=== PATIENT | male | born 1955 | race Caucasian/White ===

== ENCOUNTER → 2017-02-27 | Outpatient (REF) | payer BC, OTHER ==
[2017-02-27 16:13] LABS: ANION GAP 7 MEQ/L (8-16); BLOOD UREA NITROGEN 19 MG/DL (7-18); CALCIUM LEVEL 9.1 MG/DL (8.8-10.2); CARBON DIOXIDE LEVEL 28 MEQ/L (21-32); CHLORIDE LEVEL 106 MEQ/L (98-107); CREATININE FOR GFR 1.14 MG/DL (0.70-1.30); GLOMERULAR FILTRATION RATE > 60.0 (>49); GLUCOSE, FASTING 105 MG/DL (80-110); POTASSIUM SERUM 4.4 MEQ/L (3.5-5.1); SODIUM LEVEL 141 MEQ/L (136-145)
== END ==
LOC: M LABDRWSH 15:26
PROVIDERS: ATTEND Physician Assistant
DX: M16.12 Unilateral primary osteoarthritis, left hip (principal)

== ENCOUNTER → 2017-04-28 | Outpatient (REF) | payer BC ==
[2017-04-28 16:08] LABS: ALBUMIN 3.7 GM/DL (3.2-5.2); ALBUMIN/GLOBULIN RATIO 1.28 (1.00-1.93); ALKALINE PHOSPHATASE 88 U/L (45-117); ALT/SGPT 46 U/L (12-78); ANION GAP 5 MEQ/L (8-16); AST/SGOT 27 U/L (15-37); BILIRUBIN,TOTAL 0.7 MG/DL (0.2-1.0); BLOOD UREA NITROGEN 14 MG/DL (7-18); CALCIUM LEVEL 8.8 MG/DL (8.8-10.2); CARBON DIOXIDE LEVEL 31 MEQ/L (21-32); CHLORIDE LEVEL 105 MEQ/L (98-107); CHOLESTEROL LEVEL 171 MG/DL (<200); CREATININE FOR GFR 1.13 MG/DL (0.70-1.30); GLOMERULAR FILTRATION RATE > 60.0 (>49); GLUCOSE, FASTING 103 MG/DL (80-110); POTASSIUM SERUM 4.1 MEQ/L (3.5-5.1); SODIUM LEVEL 141 MEQ/L (136-145); TOTAL PROTEIN 6.6 GM/DL (6.4-8.2); TRIGLYCERIDES LEVEL 63 MG/DL (<150)
[2017-04-28 18:30] LABS: BASO # 0.1 K/mm3 (0.0-0.2); EOS # 0.1 K/mm3 (0.0-0.50); EOS % 2.1 % (0.0-3.0); LARGE UNSTAINED CELL % 0.4 % (0.0-4.0); LYMPH # 1.7 K/mm3 (1.5-4.5); LYMPH % 28.1 % (24.0-44.0); MEAN CORPUSCULAR HEMOGLOBIN 28.4 pg (27.0-33.0); MEAN CORPUSCULAR HGB CONC 31.8 g/dl (32.0-36.5); MEAN CORPUSCULAR VOLUME 89.3 fl (80.0-96.0); MONO # 0.2 K/mm3 (0.0-0.8); MONO % 3.8 % (0.0-5.0); NEUTROPHILS # 3.8 K/mm3 (1.8-7.7); NEUTROPHILS % 64.6 % (36.0-66.0); PLATELET COUNT, AUTOMATED 156 k/mm3 (150-450); RED CELL DISTRIBUTION WIDTH 14.1 % (11.5-14.5); WHITE BLOOD COUNT 5.9 K/mm3 (4.0-10.0)
== END ==
LOC: M SFHCSACK 08:59
PROVIDERS: ATTEND Physician Assistant
DX: I10 Essential (primary) hypertension (principal); E78.00 Pure hypercholesterolemia, unspecified; Z13.21 Encounter for screening for nutritional disorder

== ENCOUNTER → 2017-12-25 | Outpatient (CLI) | payer BC ==
[2017-12-25 12:15] LABS: BASO # 0.1 10^3/uL (0.0-0.2); BASO % 0.9 % (0.0-1.0); EOS # 0.1 10^3/uL (0.0-0.50); EOS % 2.4 % (0.0-3.0); HEMATOCRIT 42.3 % (42.0-52.0); HEMOGLOBIN 14.5 g/dl (13.5-17.5); IMMATURE GRANULOCYTE % 0.2 % (0-3.0); LYMPH # 1.8 10^3/uL (1.5-4.5); LYMPH % 33.2 % (24.0-44.0); MEAN CORPUSCULAR HEMOGLOBIN 30.7 pg (27.0-33.0); MEAN CORPUSCULAR HGB CONC 34.3 g/dl (32.0-36.5); MEAN CORPUSCULAR VOLUME 89.6 fl (80.0-96.0); MONO # 0.3 10^3/uL (0.0-0.8); NEUTROPHILS # 3.2 10^3/uL (1.8-7.7); NEUTROPHILS % 57.3 % (36.0-66.0); PLATELET COUNT, AUTOMATED 139 10^3/uL (150-450); RED BLOOD COUNT 4.72 10^6/uL (4.30-6.10); RED CELL DISTRIBUTION WIDTH 13.2 % (11.5-14.5); WHITE BLOOD COUNT 5.5 10^3/uL (4.0-10.0)
[2017-12-25 12:45] LABS: ALBUMIN 3.9 GM/DL (3.2-5.2); ALKALINE PHOSPHATASE 69 U/L (45-117); ALT/SGPT 64 U/L (12-78); ANION GAP 7 MEQ/L (8-16); AST/SGOT 51 U/L (7-37); BILIRUBIN,TOTAL 0.9 MG/DL (0.2-1.0); BLOOD UREA NITROGEN 21 MG/DL (7-18); CALCIUM LEVEL 8.9 MG/DL (8.8-10.2); CARBON DIOXIDE LEVEL 30 MEQ/L (21-32); CHLORIDE LEVEL 107 MEQ/L (98-107); CHOLESTEROL LEVEL 164 MG/DL (<200); CHOLESTEROL RISK RATIO 2.877 (<5); CREATININE FOR GFR 1.45 MG/DL (0.70-1.30); GLOMERULAR FILTRATION RATE 52.5 (>49); GLUCOSE, FASTING 122 MG/DL (70-100); HDL CHOLESTEROL 57 MG/DL (>40); NON-HDL-C 107 MG/DL; SODIUM LEVEL 144 MEQ/L (136-145); TOTAL PROTEIN 6.9 GM/DL (6.4-8.2); TRIGLYCERIDES LEVEL 70 MG/DL (<150)
== END ==
LOC: M WUC 09:08
DX: I10 Essential (primary) hypertension (principal); E78.00 Pure hypercholesterolemia, unspecified; E55.9 Vitamin D deficiency, unspecified
CPT/HCPCS: 80053

== ENCOUNTER → 2018-03-28 | Outpatient (REF) | payer BC ==
[2018-03-28 14:25] LABS: BASO # 0.1 10^3/uL (0.0-0.2); BASO % 0.7 % (0.0-1.0); EOS # 0.1 10^3/uL (0.0-0.50); EOS % 1.6 % (0.0-3.0); HEMATOCRIT 44.6 % (42.0-52.0); HEMOGLOBIN 15.3 g/dl (13.5-17.5); IMMATURE GRANULOCYTE % 0.4 % (0-3.0); LYMPH # 2.3 10^3/uL (1.5-4.5); LYMPH % 30.6 % (24.0-44.0); MEAN CORPUSCULAR HEMOGLOBIN 31.1 pg (27.0-33.0); MEAN CORPUSCULAR HGB CONC 34.3 g/dl (32.0-36.5); MEAN CORPUSCULAR VOLUME 90.7 fl (80.0-96.0); MONO # 0.4 10^3/uL (0.0-0.8); MONO % 5.2 % (0.0-5.0); NEUTROPHILS # 4.6 10^3/uL (1.8-7.7); NEUTROPHILS % 61.5 % (36.0-66.0); PLATELET COUNT, AUTOMATED 138 10^3/uL (150-450); RED BLOOD COUNT 4.92 10^6/uL (4.30-6.10); WHITE BLOOD COUNT 7.5 10^3/uL (4.0-10.0)
[2018-03-28 14:48] LABS: ALBUMIN/GLOBULIN RATIO 1.25 (1.00-1.93); ALKALINE PHOSPHATASE 71 U/L (45-117); ALT/SGPT 63 U/L (12-78); ANION GAP 6 MEQ/L (8-16); AST/SGOT 33 U/L (7-37); BILIRUBIN,TOTAL 1.1 MG/DL (0.2-1.0); BLOOD UREA NITROGEN 19 MG/DL (7-18); CALCIUM LEVEL 8.9 MG/DL (8.8-10.2); CARBON DIOXIDE LEVEL 28 MEQ/L (21-32); CHLORIDE LEVEL 107 MEQ/L (98-107); CREATININE FOR GFR 1.26 MG/DL (0.70-1.30); GLOMERULAR FILTRATION RATE > 60.0 (>49); GLUCOSE, FASTING 96 MG/DL (70-100); POTASSIUM SERUM 4.9 MEQ/L (3.5-5.1); SODIUM LEVEL 141 MEQ/L (136-145); TOTAL PROTEIN 7.2 GM/DL (6.4-8.2)
[2018-03-28 15:10] LABS: ESTIMATED AVERAGE GLUCOSE 114 MG/DL (60-110); HEMOGLOBIN A1c 5.6 %
== END ==
LOC: M SFHCSACK 09:05
DX: D69.6 Thrombocytopenia, unspecified (principal); R73.09 Other abnormal glucose
CPT/HCPCS: 80053

== ENCOUNTER → 2018-04-13 | Outpatient (REF) | payer OTHER, BC ==
[2018-04-13 13:36] LABS: REASON FOR REVIEW WBC/LEUKEMIA/BLAST; SLIDE REVIEW Report; SOURCE PERIPHERAL SMEAR
[2018-04-13 14:41] LABS: HIV 1&2 SCREEN CENTAUR NEGATIVE (NEGATIVE)
[2018-04-13 14:41] LABS: HEPATITIS C VIRUS ABY INDEX 0.1 INDEX (<0.8)
[2018-04-14 14:50] LABS: ANTINUCLEAR ANTIBODIES DIRECT Negative (Negative)
== END ==
LOC: M LAB REF 13:10
DX: D69.6 Thrombocytopenia, unspecified (principal)

== ENCOUNTER → 2018-05-09 | Outpatient (REF) | payer BC ==
[2018-05-09 14:22] LABS: BASO # 0.1 10^3/uL (0.0-0.2); BASO % 0.7 % (0.0-1.0); EOS # 0.1 10^3/uL (0.0-0.50); EOS % 1.7 % (0.0-3.0); HEMATOCRIT 42.9 % (42.0-52.0); HEMOGLOBIN 14.6 g/dl (13.5-17.5); IMMATURE GRANULOCYTE % 0.3 % (0-3.0); LYMPH % 28.9 % (24.0-44.0); MEAN CORPUSCULAR VOLUME 91.1 fl (80.0-96.0); MONO # 0.4 10^3/uL (0.0-0.8); MONO % 5.4 % (0.0-5.0); NEUTROPHILS # 4.4 10^3/uL (1.8-7.7); PLATELET COUNT, AUTOMATED 147 10^3/uL (150-450); RED BLOOD COUNT 4.71 10^6/uL (4.30-6.10); RED CELL DISTRIBUTION WIDTH 13.1 % (11.5-14.5)
[2018-05-09 17:54] LABS: ALBUMIN/GLOBULIN RATIO 1.43 (1.00-1.93); ALKALINE PHOSPHATASE 65 U/L (45-117); ALT/SGPT 56 U/L (12-78); AMYLASE 45 U/L (25-115); ANION GAP 8 MEQ/L (8-16); AST/SGOT 34 U/L (7-37); BILIRUBIN,TOTAL 0.8 MG/DL (0.2-1.0); BLOOD UREA NITROGEN 15 MG/DL (7-18); CALCIUM LEVEL 9.3 MG/DL (8.8-10.2); CARBON DIOXIDE LEVEL 28 MEQ/L (21-32); CHLORIDE LEVEL 108 MEQ/L (98-107); GLOMERULAR FILTRATION RATE > 60.0 (>49); GLUCOSE, FASTING 89 MG/DL (70-100); LIPASE 147 U/L (73-393); POTASSIUM SERUM 4.6 MEQ/L (3.5-5.1); SODIUM LEVEL 144 MEQ/L (136-145); TOTAL PROTEIN 6.8 GM/DL (6.4-8.2)
== END ==
LOC: M SFHCSACK 11:43
DX: R10.11 Right upper quadrant pain (principal)

== ENCOUNTER → 2018-05-17 | Outpatient (CLI) | payer BC | LOC: M RAD 08:11 | DX: R10.11 Right upper quadrant pain (principal) | CPT/HCPCS: 76705 ==

== ENCOUNTER → 2018-06-14 | Outpatient (CLI) | payer BC | LOC: M RAD 07:33 | DX: R10.11 Right upper quadrant pain (principal); R11.0 Nausea; R14.0 Abdominal distension (gaseous) | CPT/HCPCS: J2805 ==

== ENCOUNTER → 2019-02-06 | Outpatient (CLI) | payer BC ==
[~2019-02-06] MED LIST: ALLO100T PO; ASPI81TA26 PO; BUME2TAB3 PO; FLEC1TAB PO; FLOM0.4C39 PO; METO1TAB33 PO; PERC10TA26 PO; XARE20TA PO; ZOLP10TA2 PO
[2019-02-06 14:01] LABS: CALCIUM LEVEL 9.3 MG/DL (8.8-10.2); CREATININE FOR GFR 1.4 MG/DL (0.70-1.30); GLOMERULAR FILTRATION RATE 54.3 (>49); POTASSIUM SERUM 3.7 MEQ/L (3.5-5.1)
== END ==
LOC: M WUC 09:39
PROVIDERS: ATTEND Internal Medicine Cardiovascular Disease
DX: I10 Essential (primary) hypertension (principal)

== ENCOUNTER → 2019-03-26 | Outpatient (CLI) | payer BC ==
[2019-03-26 14:42] LABS: BASO # 0.1 10^3/uL (0.0-0.2); BASO % 0.8 % (0.0-1.0); EOS # 0.1 10^3/uL (0.0-0.50); EOS % 2.1 % (0.0-3.0); HEMATOCRIT 45.2 % (42.0-52.0); HEMOGLOBIN 15.1 g/dl (13.5-17.5); LYMPH # 1.9 10^3/uL (1.5-4.5); LYMPH % 30.5 % (24.0-44.0); MEAN CORPUSCULAR HEMOGLOBIN 31.3 pg (27.0-33.0); MEAN CORPUSCULAR HGB CONC 33.4 g/dl (32.0-36.5); MEAN CORPUSCULAR VOLUME 93.6 fl (80.0-96.0); MONO # 0.4 10^3/uL (0.0-0.8); MONO % 5.7 % (0.0-5.0); NEUTROPHILS # 3.7 10^3/uL (1.8-7.7); NEUTROPHILS % 60.6 % (36.0-66.0); PLATELET COUNT, AUTOMATED 145 10^3/uL (150-450); RED BLOOD COUNT 4.83 10^6/uL (4.30-6.10); WHITE BLOOD COUNT 6.2 10^3/uL (4.0-10.0)
[2019-03-26 14:47] LABS: ALBUMIN 3.6 GM/DL (3.2-5.2); BILIRUBIN,DIRECT 0.2 MG/DL (0.0-0.2); BILIRUBIN,TOTAL 0.8 MG/DL (0.2-1.0); CALCIUM LEVEL 8.4 MG/DL (8.8-10.2); CHOLESTEROL RISK RATIO 3.318 (<5); CREATININE FOR GFR 1.31 MG/DL (0.70-1.30); GLOMERULAR FILTRATION RATE 58.6 (>49); POTASSIUM SERUM 4.2 MEQ/L (3.5-5.1); TOTAL PROTEIN 6.3 GM/DL (6.4-8.2)
[2019-03-26 14:55] LABS: ESTRADIOL 72.1 PG/ML (<39.8)
[2019-03-26 14:57] LABS: HEMOGLOBIN A1c 6.2 %
[2019-03-28 00:14] LABS: TESTOSTERONE FREE (DIRECT) 6.3 pg/mL (6.6-18.1)
== END ==
LOC: M WUC 08:59
PROVIDERS: ATTEND Physician Assistant
DX: I10 Essential (primary) hypertension (principal); N40.0 Benign prostatic hyperplasia without lower urinary tract symptoms; M10.09 Idiopathic gout, multiple sites; T38.7X6A Underdosing of androgens and anabolic congeners, initial encounter
CPT/HCPCS: 36415; 80048; 80061; 80076; 82670; 83036; 84402; 84403; 84550; 85025; G0103

== ENCOUNTER 2019-05-10 06:53 | Day surgery (SDC) | payer BC ==
[~2019-05-10] VITALS: Ht 190.5 cm; Wt 182.0 kg
[~2019-05-10 06:53] MED LIST changes: +LIDOCAINE 1% MDV 20ML VIAL SQ PRN; +TEST200I14
[2019-05-10] MEDS ORDERED: LR 1,000 ML IV ONE (07:00)
[2019-05-10] MEDS ORDERED: fentaNYL 100 MCG/2 ML INJECTION (J3010) As Ordered ONE (08:57)
[2019-05-10] MEDS ORDERED: PROPOFOL 200 MG/20 ML VIAL As Ordered ONE (08:57)
[2019-05-10] MEDS ORDERED: LIDOCAINE 2% INJ 100 MG/5 ML SDV (FOR ANES.) As Ordered ONE (08:57)
[2019-05-10 09:58] VITALS: BP 137/63
[2019-05-10] MEDS ORDERED: ONDANSETRON 4MG/2ML VIAL (J2405) IV PRN (10:00)
[2019-05-10] MEDS ORDERED: fentaNYL 100 MCG/2 ML INJECTION (J3010) IV PRN (10:00)
[2019-05-10] MEDS ORDERED: oxyCODONE 5MG TAB PO PRN (10:00)
[2019-05-10] MEDS ORDERED: LR 1,000 ML IV SCH ×2 (10:00→10:30)
[2019-05-10] MEDS ORDERED: SLF 3 ML SYR IV PRN (10:15)
[2019-05-10 10:53] LABS: HEMATOCRIT 46.3 % (42.0-52.0); HEMOGLOBIN 15.4 g/dl (13.5-17.5); MEAN CORPUSCULAR HEMOGLOBIN 30.9 pg (27.0-33.0); MEAN CORPUSCULAR HGB CONC 33.3 g/dl (32.0-36.5); PLATELET COUNT, AUTOMATED 144 10^3/uL (150-450); RED BLOOD COUNT 4.98 10^6/uL (4.30-6.10); WHITE BLOOD COUNT 7.8 10^3/uL (4.0-10.0)
[2019-05-10 11:00] VITALS: O2SAT 100
[2019-05-10 11:27] LABS: ALBUMIN 3.5 GM/DL (3.2-5.2); ALT/SGPT 37 U/L (12-78); BILIRUBIN,TOTAL 0.7 MG/DL (0.2-1.0); BLOOD UREA NITROGEN 15 MG/DL (7-18); CALCIUM LEVEL 8.8 MG/DL (8.8-10.2); CARBON DIOXIDE LEVEL 32 MEQ/L (21-32); CHLORIDE LEVEL 104 MEQ/L (98-107); CK-MB VALUE MASS 1.3 NG/ML (<3.6); CPK CREATINE PHOSPHOKINASE 130 U/L (39-308); CREATININE FOR GFR 1.32 MG/DL (0.70-1.30); GLOMERULAR FILTRATION RATE 58.1 (>49); GLUCOSE, FASTING 117 MG/DL (70-100); POTASSIUM SERUM 4.3 MEQ/L (3.5-5.1); SODIUM LEVEL 139 MEQ/L (136-145); TOTAL PROTEIN 6.5 GM/DL (6.4-8.2); TROPONIN I < 0.02 NG/ML (< 0.10)
[2019-05-10 12:00] VITALS: O2SAT 99
[2019-05-10 12:55] LABS: MAGNESIUM LEVEL 2.2 MG/DL (1.8-2.4)
[2019-05-10 13:00] VITALS: O2SAT 97
[2019-05-10 13:29] VITALS: BP 165/72
[2019-05-10] MEDS ORDERED: SLF 3 ML SYR IV SCH (14:00)
--- NOTE | 2019-05-11 07:43 | RO ---
DATE OF PROCEDURE: 05/10/2019 PREOPERATIVE DIAGNOSIS: Atrial fibrillation. POSTOPERATIVE DIAGNOSIS: Paroxysmal atrial fibrillation, cardioverted to a normal sinus rhythm. PROCEDURE: Elective mechanical cardioversion. SURGEON ATTENDING: River William MD ANESTHESIA: [facility] INDICATION: Symptomatic atrial fibrillation. Mr. Dave Sterling has a history of paroxysmal atrial fibrillation, symptomatic, and he does not tolerate them with shortness of breath, limited his activities when he is in atrial fibrillation. He has had multiple ablations and a total of eight mechanical cardioversions in the past. He was brought today for mechanical cardioversion, his second this year. The patient was brought to the preoperative holding area in a fasting condition. Moderate conscious sedation was provided by [facility]. He received one synchronized 200 joules biphasic shock with the defibrillator patch applied anteriorly on the right upper chest and laterally on the left lower chest. This did not bring him in a normal sinus rhythm. He was again mechanically cardioverted, and he briefly went into ventricular fibrillation (v fib), mechanically again cardioverted with 250 joules, and briefly he went to a flat line. He received chest compression for about 5 to 10 seconds, and normal sinus rhythm was noted. He remains in normal sinus rhythm; and upon waking up, he was alert and awake, in akinesis at rest. He had no chest pain. Neurological examination revealed no focal deficit. He was admitted for observation. The event was discussed with him, as well as his . Prior to the procedure, we had discussed about the risks of the mechanical cardioversion, including but not limited to the complication of the conscience sedation, particularly hypotension, cardiac arrhythmia, respiratory failure, aspiration pneumonia, burn, rambo and tachyarrhythmia, and need for temporary and/or permanent pacemaker, as well as need for intubation and mechanical ventilation for respiratory failure, myocardial infarction, asystole requiring cardiopulmonary resuscitation, and even . The patient understood the risks and the benefits, and he had agreed to proceed. Informed consent was obtained and signed, witnessed. The procedure will be done while on anticoagulation therapy with aspirin and Xarelto and also while on AV blocking agent and antiarrhythmic drugs with flecainide. [facility]
--- NOTE | 2019-05-11 10:57 | ECGEPIP ---
[facility] Test Date: 2019-05-10 Pat Name: NIA NOLASCO Department: Room: - Gender: Male Corporate Controller: : 1955 Requested By: MATTHEW ANDERSON Order Number: [id number] Reading MD: Chandana Daniel Measurements Intervals Nelson Rate: 56 P: 80 LA: 272 QRS: 38 QRSD: 113 T: 50 QT: 414 QTc: 401 Interpretive Statements SINUS BRADYCARDIA WITH FIRST DEGREE AV BLOCK MODERATE INTRAVENTRICULAR CONDUCTION DELAY Electronically Signed on 05-11-2019 10:57:23 EDT by Chandana Daniel
--- NOTE | 2019-05-11 22:22 | HPE ---
DATE OF ADMISSION: 05/10/2019 REASON FOR ADMISSION: Atrial fibrillation, post mechanical cardioversion, post ventricular fibrillation for observation. HISTORY OF PRESENT ILLNESS: A 64-year-old male with history of paroxysmal atrial fibrillation, was seen earlier this week with atrial fibrillation, according to the patient he has been having increasing shortness of breath. He does have a history of paroxysmal atrial fibrillation and he is symptomatic when he is in atrial fibrillation even though his heart rate is under control. He has been taking an extra dose of flecainide for a total of 300 mg by mouth daily and this did not comfort him to a normal sinus rhythm. He has had multiple atrial fibrillation ablation in the past and they have been unsuccessful. He also has had multiple mechanical cardioversion and I believe this one would be #8. He has had 2 last year and 2 this year. In view of his symptoms, he was brought to the hospital for mechanical cardioversion, which was done. The first shock of 200 joules failed to bring him back to a normal sinus rhythm and he was shocked again with 250 joules and he developed ventricular tachycardia and he was shocked a third time and presently in developed a flatline and then we started chest compression for a brief period of time, probably about 5-10 seconds and he went into a normal sinus rhythm. He was admitted to PCU for observation. Upon awakening from the anesthesia, he denies any chest pain and there is no focal manifestation. He was alert and awake. This was discussed with his and the patient was made aware about the events. PAST MEDICAL HISTORY: As mentioned above, positive for paroxysmal atrial fibrillation, hypertension, hyperlipidemia, history of coronary artery disease, obesity and arthritis, syncope that was thought to be orthostatic in origin and BPH. PAST SURGICAL HISTORY IS POSITIVE FOR: Lumbar laminectomy in [place], [place], left total hip replacement on 01/31/2017 at [facility] and knee surgery also in [place]. MEDICATIONS PRIOR COMING TO THE HOSPITAL: - Diovan HCT 160 - 2.5 mg by mouth daily - testosterone - metoprolol tartrate 50 mg tablet twice a day - aspirin 81 mg by mouth daily - Xarelto 20 mg by mouth daily, which she took last evening - flecainide 100 mg by mouth twice - Bumex 2 mg by mouth three times a day - Flovent 0.4 mg by mouth daily - KCl 10 mEq by mouth daily as needed when he takes the Bumex - oxycodone also as needed for pain PHYSICAL EXAMINATION: The patient is alert and oriented, in no acute distress at rest and his vital signs earlier today was 137/63 with a pulse of 73, respiration 18 and his maximum temperature was 97.3 degrees Fahrenheit with an oxygen saturation of 99% on 2 liters nasal cannula. Examination of the head: Atraumatic. Neck is supple and no JVD appreciated. The lungs did not reveal any wheezing or crackles. The heart examination revealed regular heart sounds without gallops. The PMI is not displaced. There is no rub. I could not appreciate any murmurs. Abdomen is unremarkable. Obese. Extremities revealed bilateral lower leg and pedal edema. Neurologic examination is negative for focal deficit. LABORATORY DATA: Complete blood count (CBC) revealed white blood count (WBC) of 7.8, hemoglobin 15.4, hematocrit 46.3 and platelet 144,000. Basic metabolic panel (BMP) revealed a sodium of 139, potassium 4.3, chloride 104, CO2 32, BUN 15, creatinine 1.329, glomerular filtration rate (GFR) 58.1 fasting glucose 117 and calcium 8.8. Serum magnesium was 2.2. Liver enzymes revealed a total bilirubin of 0.7, AST 27, ALT 37, alkaline phosphatase 44, total protein 6.5, albumin 3.5. Troponin was less than 0.02. Telemetry revealed normal sinus rhythm. Mr. Dave Land is stable from a cardiac point of view and case was discussed with the invasive team in [place], he does have a history of known coronary artery disease and most recent cardiac catheterization was in 2013. He will be transferred for a cardiac catheterization to reassess his coronary artery disease, then further recommendation will be given. He has had multiple ablation for his atrial fibrillation and also multiple mechanical cardioversions. I believe he will benefit from AV node ablation and probably permanent pacemaker implantation; but while at [facility], he will be seen by EP and further recommendations will be given. This was discussed with him, as well as his , he is in agreement to proceed. He knows that we cannot continue with the mechanical cardioversions. He has an appointment for followup as outpatient and will continue same. [facility]
== END 2019-05-10 13:37 | disposition short-term general hospital (02) ==
LOC: M SDC 06:53 → M PCU 09:34 → M SDC 13:37
PROVIDERS: ATTEND Internal Medicine Cardiovascular Disease
DX: I48.0 Paroxysmal atrial fibrillation (principal); I10 Essential (primary) hypertension; N40.0 Benign prostatic hyperplasia without lower urinary tract symptoms; G47.30 Sleep apnea, unspecified; Z79.01 Long term (current) use of anticoagulants; Z79.82 Long term (current) use of aspirin; Z79.899 Other long term (current) drug therapy; Z88.5 Allergy status to narcotic agent; Z88.0 Allergy status to penicillin
CPT/HCPCS: 36415; 80053; 82550; 82553; 83735; 84484; 85027; 92960; 93005; J3010

== ENCOUNTER → 2019-06-03 | Outpatient (CLI) | payer BC ==
[~2019-06-03] MED LIST changes: -LIDOCAINE 1% MDV 20ML VIAL SQ PRN
[2019-06-03 13:23] LABS: BASO % 0.6 % (0.0-1.0); EOS # 0.1 10^3/uL (0.0-0.5); EOS % 2.1 % (0.0-3.0); HEMATOCRIT 46.2 % (42.0-52.0); HEMOGLOBIN 15.2 g/dl (13.5-17.5); LYMPH # 1.8 10^3/uL (1.5-5.0); LYMPH % 26.1 % (24.0-44.0); MEAN CORPUSCULAR HEMOGLOBIN 30.6 pg (27.0-33.0); MEAN CORPUSCULAR HGB CONC 32.9 g/dl (32.0-36.5); MONO # 0.4 10^3/uL (0.0-0.8); MONO % 5.2 % (0.0-5.0); NEUTROPHILS # 4.5 10^3/uL (1.5-8.5); NEUTROPHILS % 65.7 % (36.0-66.0); PLATELET COUNT, AUTOMATED 143 10^3/uL (150-450); RED BLOOD COUNT 4.97 10^6/uL (4.30-6.10); WHITE BLOOD COUNT 6.8 10^3/uL (4.0-10.0)
[2019-06-03 13:27] LABS: ALBUMIN 3.6 GM/DL (3.2-5.2); BILIRUBIN,TOTAL 0.8 MG/DL (0.2-1.0); CALCIUM LEVEL 8.8 MG/DL (8.8-10.2); CREATININE FOR GFR 1.37 MG/DL (0.70-1.30); GLOMERULAR FILTRATION RATE 55.7 (>49); POTASSIUM SERUM 4.2 MEQ/L (3.5-5.1); TOTAL PROTEIN 6.3 GM/DL (6.4-8.2); URIC ACID 7.5 MG/DL (3.5-7.2)
[2019-06-03 13:57] LABS: HEMOGLOBIN A1c 5.8 %
[2019-06-03 14:05] LABS: MALB URINE SIEMENS 14.1 MG/L; MAU/CREAT RATIO 6.7 MCG/MG (0.0-30.0)
[2019-06-05 00:07] LABS: TESTOSTERONE FREE (DIRECT) 19.1 pg/mL (6.6-18.1)
== END ==
LOC: M WUC 09:25
PROVIDERS: ATTEND Physician Assistant
DX: M10.09 Idiopathic gout, multiple sites (principal); R73.03 Prediabetes; E29.1 Testicular hypofunction

== ENCOUNTER → 2020-03-10 | Outpatient (CLI) | payer MEDICARE ==
[2020-03-10 13:02] LABS: ALBUMIN 3.5 GM/DL (3.2-5.2); BILIRUBIN,TOTAL 0.8 MG/DL (0.2-1.0); CALCIUM LEVEL 8.6 MG/DL (8.8-10.2); CHOLESTEROL RISK RATIO 3.071 (<5); CREATININE FOR GFR 1.31 MG/DL (0.70-1.30); GLOMERULAR FILTRATION RATE 58.5 (>49); POTASSIUM SERUM 4.2 MEQ/L (3.5-5.1); TOTAL PROTEIN 6.2 GM/DL (6.4-8.2)
[2020-03-10 13:03] LABS: BASO # 0.1 10^3/uL (0.0-0.2); BASO % 0.8 % (0.0-1.0); EOS # 0.2 10^3/uL (0.0-0.5); EOS % 2.4 % (0.0-3.0); HEMATOCRIT 43.3 % (42.0-52.0); HEMOGLOBIN 14.5 g/dl (13.5-17.5); LYMPH # 1.9 10^3/uL (1.5-5.0); LYMPH % 29.2 % (24.0-44.0); MEAN CORPUSCULAR HEMOGLOBIN 31.3 pg (27.0-33.0); MEAN CORPUSCULAR HGB CONC 33.5 g/dl (32.0-36.5); MEAN CORPUSCULAR VOLUME 93.3 fl (80.0-96.0); MONO # 0.3 10^3/uL (0.0-0.8); NEUTROPHILS % 62.3 % (36.0-66.0); PLATELET COUNT, AUTOMATED 122 10^3/uL (150-450); RED BLOOD COUNT 4.64 10^6/uL (4.30-6.10); WHITE BLOOD COUNT 6.4 10^3/uL (4.0-10.0)
[2020-03-10 13:10] LABS: MALB URINE SIEMENS 19.9 MG/L
[2020-03-10 13:12] LABS: HEMOGLOBIN A1c 5.3 %
[2020-03-12 04:07] LABS: TESTOSTERONE FREE (DIRECT) 13.6 pg/mL (6.6-18.1)
== END ==
LOC: M WUC 09:01
PROVIDERS: ATTEND Physician Assistant
DX: R73.03 Prediabetes (principal); M10.09 Idiopathic gout, multiple sites; E29.1 Testicular hypofunction; I10 Essential (primary) hypertension